=== PATIENT | male | born 1955 | race Caucasian/White ===

== ENCOUNTER 2024-06-27 07:36 | Emergency (ER) | payer MEDICARE, OTHER, SELFPAY ==
[2024-06-27 07:41] VITALS: BP 160/79
--- NOTE | 2024-06-27 08:23 | ED.GENMED ---
History of Present Illness
General
Chief Complaint: Abdominal Pain
Source: patient
Time Seen by Provider: 06/27/24 08:02
History of Present Illness
History of Present Illness:
15-year-old male presents the emergency room complaining of lower abdominal pain. Pain has been present for the past 5 to 6 days. He first noticed discomfort in the suprapubic region which has began to migrate to the left. The pain is constant
but seems to have gotten much worse over the past 24 hours. Patient has a complicated surgical history. He had diverticulitis with a pelvic abscess requiring bowel resection and ileostomy. He evidently had some adhesions in order involvement of
the bladder at that time. The ileostomy has been reversed. Patient states since the reversal surgery he occasionally has some suprapubic discomfort which is relieved with flatulence or urination. The pain is in the same area but constant at this
point. He denies any nausea, vomiting or anorexia. He has had normal bowel movements.
Phy Exam
Physical Exam
Physical Exam:
General: Awake, Alert, Oriented X3. No acute distress.
Vitals: unremarkable
Head: Atraumatic
Eyes: Pupils equal, EOMI
Throat: Airway intact, no exudates
Neck: Trachea midline
Lungs: Clear and equal b/l
Heart: Regular rate, no murmurs
Abd: Soft, mildly tender to palpation suprapubic left lower quadrant, No pulsatile mass
Neuro: Nonfocal
Skin: Warm, dry, no rash
Extremities: pulses equal b/l, no edema
Course
Orders/Labs/Results
Orders:
Orders
06/27/24 08:23
CT Abd/pel W Iv And Oral Contr Urgent
Comment:
Reason For Exam: lower abd pain
0.9% Sodium Chloride 1000 ml [Nss] 1,000 ml IV BOLUS
Iohexol [Omnipaque] See Protocol PO NOW STA
06/27/24 08:57
Complete Blood Count/With Diff Urgent
Comprehensive Metabolic Panel Urgent
Lactic Acid Urgent
Lipase Urgent
PSA, Total - Diagnostic Urgent
Comment: ADD ON
06/27/24 09:17
Add On- LAB Urgent
Tests Added?: psa
06/27/24 10:45
Urinalysis Reflex To Culture Urgent
Date Specimen was Collected: 06/27/24
Time Specimen was Collected: 09:52
06/27/24 12:25
Malcolm Placement- Treatment ONCE
Reason for insertion: Outlet obstruction
06/27/24 12:42
Tamsulosin [Flomax] 0.4 mg PO NOW STA
Abnormal Lab Results
06/27/24
08:57
WBC 4.5 L 10^3/uL
(4.8-10.8)
Monocytes % 9.7 H %
(1.7-9.3)
Glucose 111 H mg/dl
(70-99)
Calcium 10.6 H mg/dl
(8.4-10.2)
06/27/24 08:57
06/27/24 08:57
Vital Signs
Initial and Last Documented VS:
Initial Vital Signs
Temp Pulse Resp BP Pulse Ox
98.4 F 68 18 160/79 97
06/27/24 07:41 06/27/24 07:41 06/27/24 07:41 06/27/24 07:41 06/27/24 07:41
Last Documented Vital Signs
Temp Pulse Resp BP Pulse Ox
98.4 F 57 15 124/73 97
06/27/24 07:41 06/27/24 13:15 06/27/24 13:15 06/27/24 13:00 06/27/24 13:15
MDM/Problems Addressed
Differential Diagnosis Includes:
Diverticulitis, partial large bowel obstruction, cystitis, prostatitis, urinary retention
MDM/Problems Addressed:
Patient presents with colicky type abdominal pain that has been present for the past week. Labs are reassuring and that he has a essentially normal white count and normal chemistries. Urinalysis is normal. CT of the abdomen pelvis shows diffuse
mild urinary bladder wall thickening with the possibility of chronic outlet obstruction secondary to prostamegaly. No other significant abnormal findings noted. Postvoid bladder scan showed greater than 350 cc of urine in the bladder.
Communicated with Dr. Leon who knows the patient and recommends Malcolm placement and they will see him in the office in the next couple days to reassess. Will start tamsulosin.
*Radiology
Radiology exam reviewed: radiology read reviewed
*Pulse Oximetry
Patient hypoxic: no
*Critical Care Note
Total Time (30-74mins, 75-104mins- exclusive of procedures): Not Applicable
Data Reviewed
Review of Other/Old Records Reveals: Operative Reports and Discharge Summary
ED Attending Note
-
Portions of this chart may have been created with voice recognition software.� Occasional wrong word or��sound alike� substitutions may have occurred due to the inherent limitations of voice recognition software.
Discharge Plan
Departure
Patient Disposition: Home (Routine Discharge)
Date of Disposition: 06/27/24
Time of Disposition: 12:42
Patient with high blood pressure during this ER visit?: No
Condition: Good
Discharge Problem:
Abdominal pain, Acute urinary retention, Prostatic hypertrophy
Instructions: How to Care for Your Malcolm Catheter, Male, Urinary retention
Prescriptions:
New
tamsulosin 0.4 mg capsule
0.4 mg PO DAILY Qty: 30 0RF
Referrals:
NONE,* [Family Provider] -
Steve Leon MD [Active] -
Activity Restrictions/Additional Instructions:
Call Dr. Lamb office to arrange an appointment likely Monday morning. Take tamsulosin once a day. Return for any concerns.
Interventions
Interventions:
*Risk Screen - Suicide Last Done: 06/27/24 07:41
*General Assessment Last Done: 06/27/24 07:41
*Neglect/Abuse Screening Last Done: 06/27/24 07:41
*ED COVID-19 Vaccine History Last Done: 06/27/24 08:58
DL-Byssii-Xyiktngnmf Assessment Last Done: 06/27/24 09:05
Discharge Date and Time
Print Language: MALTESE
[2024-06-27] MEDS: OMNIPAQUE 50 ML PO (08:33)
[2024-06-27] MEDS: NSS 1000 IV (08:57)
[2024-06-27 08:58] VITALS: BMI 24.5
[2024-06-27 09:06] LABS: % Basophils 0.9 % (0-2); % Eosinophils 1.3 % (0-6); % Immature Granulocytes 0.2 % (0-0.5); % Lymphocytes 29.9 % (20.5-51.1); % Monocytes 9.7 % (1.7-9.3); Absolute Eosinophils 0.1 10^3/uL (0-0.7); Absolute Lymphocytes 1.3 10^3/uL (1.2-3.4); Absolute Monocytes 0.4 10^3/uL (0.1-0.6); Absolute Neutrophils 2.6 10^3/uL (1.4-6.5); Hematocrit 41.7 % (39.0-52.0); Hemoglobin 14.2 g/dL (13.0-18.0); Mean Corp Hgb Conc. 34.1 g/dL (33.0-37.0); Mean Corpuscular Hgb 30.1 pg (27.0-31.0); Mean Corpuscular Volume 88.5 fL (80.0-94.0); Mean Platelet Volume 10.2 fL (7.4-10.4); Nucleated Red Blood Cells % 0 % (-); Platelet Count 203 10^3/uL (130-400); Red Blood Cell Count 4.71 10^6/uL (4.70-6.10); Red Cell Dist. Width 13.3 % (11.5-14.5); White Blood Cell Count 4.5 10^3/uL (4.8-10.8)
[2024-06-27 09:23] LABS: Lactic Acid 0.7 mmol/L (0.7-2.0)
[2024-06-27 09:32] LABS: ALT (SGPT) 23 U/L (0-50); AST (SGOT) 23 U/L (17-59); Albumin 4.3 g/dl (3.5-5.0); Alkaline Phosphatase 68 U/L (38-126); Blood Urea Nitrogen 9 mg/dl (9-20); Calcium 10.6 mg/dl (8.4-10.2); Carbon Dioxide 27 mmol/L (22-30); Chloride 105 mmol/L (98-107); Estimated Creatinine Clearance 77 ml/min; Glucose 111 mg/dl (70-99); Lipase 119 U/L (23-300); Potassium 4.2 mmol/L (3.5-5.1); Sodium 139 mmol/L (135-145); Total Protein 6.9 g/dl (6.3-8.2); eGFR > 60.00
[2024-06-27 10:59] LABS: Urine Albumin Negative (Neg - Trace); Urine Bilirubin Negative (Negative); Urine Character Clear (Clear); Urine Color Straw; Urine Glucose Negative (Negative); Urine Ketone Negative (Negative); Urine Leukocyte Negative (Negative); Urine Nitrite Negative (Negative); Urine Occult Blood Negative (Negative); Urine Urobilinogen Negative (Neg - 1+)
[2024-06-27 11:11] VITALS: BP 117/71
[2024-06-27 12:00] VITALS: BP 125/70
[2024-06-27 12:12] LABS: PSA, Total - Diagnostic 3.28 ng/ml (0.0-4.0)
[2024-06-27 13:00] VITALS: BP 124/73
[2024-06-27] MEDS: FLOMAX 0.4 MG PO (13:17)
== END 2024-06-27 13:49 | disposition home or self-care (01) ==
LOC: EMR 07:36
PROVIDERS: EMERGENCY PHYSICIAN Emergency Medicine
DX: R10.30 Lower abdominal pain, unspecified (principal); N40.1 Benign prostatic hyperplasia with lower urinary tract symptoms; R33.8 Other retention of urine; K57.92 Diverticulitis of intestine, part unspecified, without perforation or abscess without bleeding; Z98.0 Intestinal bypass and anastomosis status
CPT/HCPCS: 99284; 96360; 51702; 74177; 80053; 81003; 83605; 83690; 84153; 85025; Q9967

== ENCOUNTER 2024-06-27 16:26 | Emergency (ER) | payer MEDICARE, OTHER, SELFPAY ==
[2024-06-27 16:34] VITALS: BP 112/75
[2024-06-27 18:30] VITALS: BP 119/72
--- NOTE | 2024-06-27 19:19 | ED.GENMED ---
History of Present Illness
General
Chief Complaint: Catheter/Tube Problem
Source: patient
Exam Limitations: none
Time Seen by Provider: 06/27/24 18:08
Nursing documentation reviewed up to this point in time: agreed with
History of Present Illness
History of Present Illness:
Patient is a 68-year-old male presenting to the emergency department for evaluation of problems with his Malcolm catheter. Patient was seen in the emergency department this morning where he was found to be in acute urinary retention secondary to
prostamegaly. A Malcolm catheter was placed and was draining prior to discharge. However�patient states upon arriving home the bag started slipped on his leg pulling at the catheter. He then tried to push the catheter further when and noticed that
he was starting to bleed from around the tube site. He was concerned that the catheter was not draining appropriately. He tried to forcefully urinate and noted that some urine was also leaking around the tube. He became concerned that the
catheter was out of place and presented to the emergency department
Patient denies any significant pain. Bleeding has stopped by my evaluation. He denies any abdominal pain or distention.
He has already been able to schedule an appointment with urology early next week
Review of Systems
Review of Systems
Allergies reviewed?: Yes
All Other Systems: ROS reviewed and negative except as documented in HPI and ROS
Phy Exam
Physical Exam
Physical Exam:
Vitals: Tachycardic on arrival, improved by my assessment.
General: Patient is well appearing, no acute distress. Nontoxic appearing
Skin: Warm and dry, no rashes or lesions
Head: Normocephalic, atraumatic
Eyes: Sclera nonicteric. EOMs intact. No nystagmus.
Throat: Protecting airway
Neck: Normal ROM, no cervical spine tenderness, no meningismus
Cardiac: Regular rate and rhythm, no murmurs.
Pulm: Normal respiratory effort, no wheezes, rales, rhonchi heard on exam.
Abdomen: Nondistended. Abdomen soft and nontender.
: Malcolm catheter in place draining yellow urine. No active bleeding.
Extremities: No evidence of cyanosis or edema
Neuro: AAOx3. Grossly intact.
Psychiatric: Normal affect.
Course
Vital Signs
Initial and Last Documented VS:
Initial Vital Signs
Temp Pulse Resp Pulse Ox
98.1 F 123 16 95
06/27/24 16:33 06/27/24 16:33 06/27/24 16:33 06/27/24 16:33
Last Documented Vital Signs
Temp Pulse Resp BP Pulse Ox
98.1 F 88 16 119/72 97
06/27/24 16:33 06/27/24 18:30 06/27/24 18:30 06/27/24 18:30 06/27/24 18:30
MDM/Problems Addressed
Differential Diagnosis Includes:
Not limited to: Malpositioned Malcolm catheter, BPH, acute urinary retention, etc.
MDM/Problems Addressed:
68-year-old male presenting with bleeding for Malcolm catheter that was placed earlier today in the emergency department due to acute urinary retention. No fever, chills, or abdominal pain. Bleeding has stopped by my evaluation. Vitals and physical
exam as above. Patient initially tachycardic although normalized by my assessment. On exam�patient has a Malcolm catheter appears to be appropriately in place. No evidence of bleeding or drainage around site. Malcolm seems to be draining
appropriately with yellow urine into bag. There is no evidence of irritation or bleeding from penis. Abdomen is soft, nontender, nondistended. Prior to my evaluation�RN flushed Malcolm catheter which appears to be functioning normally. Did obtain
bladder scan which shows 0 cc of bladder further confirming no evidence of urinary retention that Malcolm is functioning properly. Suspect minimal bleeding earlier likely secondary to trauma/irritation. Patient is not on a blood thinner. At this
point�feel patient stable for discharge home with urology follow-up outpatient as scheduled next week. Patient comfortable with plan. Close return precautions discussed.
Chronic conditions affecting care:
BPH
Acute Exacerbation and/or Progression of Chronic Illness:
N/A
*Pulse Oximetry
Patient hypoxic: no
*EKG
Interpreted by ED Provider?: NA
*Clipper Machine Interpretation
Rate: Clipper Machine- N/A
*Critical Care Note
Total Time (30-74mins, 75-104mins- exclusive of procedures): Not Applicable
Data Reviewed
Review of Other/Old Records Reveals: Records (ED discharge summary from 06/28/2024-acute urinary retention secondary to prostamegaly, Malcolm catheter placed)
ED Attending Note
-
Portions of this chart may have been created with voice recognition software.� Occasional wrong word or��sound alike� substitutions may have occurred due to the inherent limitations of voice recognition software.
Discharge Plan
Departure
Patient Disposition: Home (Routine Discharge)
Date of Disposition: 06/27/24
Time of Disposition: 18:34
Patient with high blood pressure during this ER visit?: No
Condition: Good
Covid-19: Not Applicable
Discharge Problem:
Complication of Malcolm catheter
Instructions: How to Care for Your Malcolm Catheter, Male
Prescriptions:
No Action
tamsulosin 0.4 mg capsule
0.4 mg PO DAILY Qty: 30 0RF
Referrals:
Steve Leon MD [Active] - Keep scheduled appt
PRIVATE,PHYSICIAN [Family Provider] -
Activity Restrictions/Additional Instructions:
Return to the emergency department with any fevers, bleeding from Malcolm catheter, urine not draining from Malcolm catheter, worsening abdominal pain, or any other concerns
- As discussed�your Malcolm catheter was draining appropriately while in the emergency department. Continue to care for your Malcolm as directed.
- Take Flomax daily as prescribed. Stay well-hydrated.
- Follow-up with urology as scheduled next Monday w/ Dr. Leon.
Monitor your symptoms closely and return to the emergency department with any acute worsening/new symptoms or any other concerns
Interventions
Interventions:
*Nursing Disposition Last Done: 06/27/24 18:59
XM-Ulhhop-Fvgqcqkzeb Assessment Last Done: 06/27/24 17:45
ED-Male Genitourinary Assessment Last Done: 06/27/24 17:45
Discharge Date and Time
Discharge Date/Time: 06/27/24 19:03
Print Language: PORTUGUESE
== END 2024-06-27 19:03 | disposition home or self-care (01) ==
LOC: EMR 16:26
PROVIDERS: EMERGENCY PHYSICIAN Student in an Organized Health Care Education/Training Program
DX: T83.83XA Hemorrhage due to genitourinary prosthetic devices, implants and grafts, initial encounter (principal); Y84.6 Urinary catheterization as the cause of abnormal reaction of the patient, or of later complication, without mention of misadventure at the time of the procedure; K57.92 Diverticulitis of intestine, part unspecified, without perforation or abscess without bleeding
CPT/HCPCS: 99283; 51798